=== PATIENT | male | born 1975 | race Hispanic/Latino ===

== ENCOUNTER → 2019-04-15 | Outpatient (CLI) | payer OTHER, MEDICAID | END | disposition home or self-care (01) | LOC: RAH 08:51 | PROVIDERS: ATTEND Internal Medicine Cardiovascular Disease | DX: I11.9 Hypertensive heart disease without heart failure (principal); I42.0 Dilated cardiomyopathy | CPT/HCPCS: 93306 ==

== ENCOUNTER → 2021-01-26 | Outpatient (CLI) | payer BC, MEDICAID | END | disposition home or self-care (01) | LOC: SHCH 08:46 | PROVIDERS: ATTEND Internal Medicine Cardiovascular Disease | DX: I34.0 Nonrheumatic mitral (valve) insufficiency (principal); I25.3 Aneurysm of heart; I10 Essential (primary) hypertension; E66.9 Obesity, unspecified; E78.5 Hyperlipidemia, unspecified; E11.9 Type 2 diabetes mellitus without complications; R55 Syncope and collapse | CPT/HCPCS: 93306; 93356 ==

== ENCOUNTER 2021-10-16 13:54 | Emergency (ER) | payer BC, MEDICAID ==
[~2021-10-16] VITALS: Ht 188 cm; Wt 181.4 kg
[2021-10-16 14:00] VITALS: BP 164/116
[2021-10-16 14:27] LABS: BASOPHILS % (AUTO) 0.2 % (0.0-5.0); EOSINOPHILS % (AUTO) 1.2 % (0.0-8.0); HEMATOCRIT 46.8 % (42-54); LYMPHOCYTES % (AUTO) 15.9 % (21.0-51.0); MEAN CORPUSCULAR HEMOGLOBIN 27.3 pg (27.0-33.0); MEAN CORPUSCULAR HGB CONC 32.1 g/dL (32.0-36.0); MEAN CORPUSCULAR VOLUME 85.1 fL (79-99); MONOCYTES % (AUTO) 7.8 % (3.0-13.0); NEUTROPHILS % (AUTO) 74.4 % (40.0-77.0); PLATELET COUNT (AUTO) 181 K/uL (130-400); RED CELL DISTRIBUTION WIDTH 13.1 % (11.0-15.5); WHITE BLOOD COUNT (AUTO) 5.8 K/uL (4.8-10.8)
[2021-10-16 14:50] LABS: CREATININE 0.8 mg/dL (0.5-1.5); POTASSIUM 3.9 mmol/L (3.5-5.1)
[2021-10-16 14:56] LABS: ALBUMIN 3.2 g/dL (3.5-5.0); BILIRUBIN,TOTAL 2.2 mg/dL (0.2-1.0); TOTAL PROTEIN, SERUM 6.5 g/dL (6.0-8.3)
[2021-10-16 18:09] LABS: APPEARANCE,URINE CLEAR (CLEAR); BILIRUBIN,URINE NEGATIVE (NEGATIVE); COLOR,URINE YELLOW (YELLOW); GLUCOSE, URINE (UA) >=1000 mg/dL (NEGATIVE); KETONES,URINE NEGATIVE (NEGATIVE); LEUKOCYTE ESTERASE ,URINE NEGATIVE (NEGATIVE); NITRATE,URINE NEGATIVE (NEGATIVE); OCCULT BLOOD,URINE TRACE-INTACT (NEGATIVE); PROTEIN,URINE 100 mg/dL (NEGATIVE)
[2021-10-16 18:29] LABS: BACTERIA,URINE Rare /HPF (None Seen); MUCUS,URINE Few LPF (None Seen); RBC,URINE 0-1 /HPF (0-1); SQUAMOUS EPITHELIAL CELL,UR Rare /HPF (0-2)
[2021-10-16 18:30] LABS: HYALINE CASTS, URINE 0-1 /LPF (0-1 /LPF)
== END 2021-10-16 18:30 | disposition left against medical advice (07) ==
LOC: EDH 13:54
DX: R10.13 Epigastric pain (principal); Z53.21 Procedure and treatment not carried out due to patient leaving prior to being seen by health care provider
CPT/HCPCS: 36415; 80053; 81001; 82150; 83690; 84484; 85025

== ENCOUNTER → 2021-12-21 | Outpatient (CLI) | payer MEDICAID | LOC: LAB 09:04 | PROVIDERS: ATTEND Internal Medicine Cardiovascular Disease | DX: I51.7 Cardiomegaly (principal); I48.91 Unspecified atrial fibrillation | CPT/HCPCS: 36415; 83735; 83880 ==

== ENCOUNTER 2022-03-25 05:46 | Day surgery (SDC) | payer MEDICAID ==
[2022-03-21 14:25] VITALS: BP 108/70
[2022-03-21 14:40] LABS: BASOPHILS % (AUTO) 0.8 % (0.0-5.0); EOSINOPHILS % (AUTO) 2.2 % (0.0-8.0); HEMATOCRIT 48.3 % (42-54); LYMPHOCYTES % (AUTO) 17.3 % (21.0-51.0); MEAN CORPUSCULAR HEMOGLOBIN 29.7 pg (27.0-33.0); MEAN CORPUSCULAR VOLUME 87.5 fL (79-99); MONOCYTES % (AUTO) 8.3 % (3.0-13.0); PLATELET COUNT (AUTO) 212 K/uL (130-400); RED BLOOD CELL COUNT(AUTO) 5.52 MIL/uL (4.50-6.20); RED CELL DISTRIBUTION WIDTH 14.2 % (11.0-15.5); WHITE BLOOD COUNT (AUTO) 9.1 K/uL (4.8-10.8)
[2022-03-21 14:47] LABS: INR 1.05 (0.85-1.15); PROTHROMBIN TIME 11.4 SEC (9.6-11.6)
[2022-03-21 14:48] LABS: POTASSIUM 4.2 mmol/L (3.5-5.1)
[~2022-03-25] VITALS: Ht 188 cm; Wt 175.5 kg
[2022-03-25] VITALS (11 sets, daily range): BP systolic 95–135; BP diastolic 52–84
[~2022-03-25 05:46] MED LIST: APIX5TAB PO; DULA3PEN SQ; EMPA10TA PO; FURO40TA5 PO; INSU100V12 SQ; IVAB5TAB PO; MAGN64TA9 PO; METO50TA18 PO; SACU1TAB PO; SPIR25TA6 PO
[2022-03-25] MEDS ORDERED: 0.9%NACL 1000ML 1,000 ML IV ONE (06:14)
[2022-03-25] MEDS ORDERED: BUPIVACAINE/PF 0.25% 30ML VIAL IJ ONE (07:23)
[2022-03-25] MEDS ORDERED: LIDOCAINE HCL 1% 10 ML VIAL ONE (07:24)
[2022-03-25] MEDS ORDERED: MIDAZOLAM HCL 1 MG/ML 2ML VIAL ONE ×3 (07:51→08:01)
[2022-03-25] MEDS ORDERED: MEPERIDINE-PF 25 MG/ML SYG ONE ×3 (07:51→08:01)
[2022-03-25] MEDS ORDERED: CEFAZOLIN SODIUM 1 GM VIAL IVP ONE ×2 (08:00→14:45)
[2022-03-25] MEDS ORDERED: 0.9%NACL 1000ML 1,000 ML IV SCH (08:00)
[2022-03-25] MEDS ORDERED: BACITRACIN 1 EACH PACKET TP ONE (08:44)
[2022-03-25] MEDS ORDERED: ACETAMINOPHEN WITH CODEINE 1 TAB TAB PO PRN (09:00)
[2022-03-25] MEDS ORDERED: ONDANSETRON 4MG INJ IV PRN (09:00)
== END 2022-03-25 14:59 | disposition home or self-care (01) ==
LOC: DAH 05:46
PROVIDERS: ATTEND Internal Medicine Cardiovascular Disease
DX: Z45.02 Encounter for adjustment and management of automatic implantable cardiac defibrillator (principal); I42.0 Dilated cardiomyopathy; E66.9 Obesity, unspecified; I48.0 Paroxysmal atrial fibrillation; Z79.899 Other long term (current) drug therapy; Z79.01 Long term (current) use of anticoagulants
CPT/HCPCS: 80048; 85025; 85610; 85730; 36415; 33264; 82948 ×2; C1882; J0690 ×2; J7030; J2250 ×3; J3490; J2175 ×3; A4215; A4222; A4221; A4663; A4216; A4606; A4223 ×3; S0020; 99156; 99157